=== PATIENT | male | born 1930 | race Two or more races ===

== ENCOUNTER 2016-11-22 13:25 | Outpatient (CLI) | payer MEDICARE, OTHER ==
[~2016-11-22 13:25] MED LIST: ALIGN4 M1 PO; AMLODIPINE BESYL5 MG ORAL; ASPIRIN-LOW81 MG ORAL; BYSTOLIC 10MG10 MG ORAL; BYSTOLIC2.5 MG ORAL; CRESTOR10 M1 ORAL; DEXILANT60 MG ORAL; LEXAPRO10 MG ORAL; LINZESS145 MCG PO; LISINOPRIL10 MG ORAL; METAMUCIL425 GM PO; METFORMIN HCL500 M1 ORAL; PLAVIX75 MG ORAL; REPATHA SY140 MG/1 M SQ
[2016-11-22] MEDS ORDERED: PROLIA60 MG/1 ML SUBQ (13:53)
--- NOTE | 2016-11-22 14:25 | GI Progress Note ---
Assessment/Plan Problems: (1) Weight loss ICD Codes: R63.4 - Abnormal weight loss SNOMED: 47058489, 231964037 (2) DM (diabetes mellitus) ICD Codes: E11.9 - DM (diabetes mellitus) SNOMED: 99852739 (3) Chronic constipation ICD Codes: K59.00 - Chronic constipation SNOMED: 596196993 (4) Hemorrhoids ICD Codes: K64.9 - Hemorrhoids SNOMED: 30743349 Status: stable Status Narrative Seen with Dr. Phan. Assessment/Plan trial Linzess recommend Align daily RTC x 3 weeks for possible EGD/colonoscopy will consider CT for weight loss Subjective Subjective RLQ abdominal pain constipation decrease in appetite. Objective T 97.4 BP 130/71 P 64 WT 151 General Appearance: no apparent distress, alert Cardiovascular: normal rate Respiratory/Chest: normal breath sounds, no respiratory distress Abdominal Exam: normal bowel sounds, non tender, soft Extremities: normal range of motion Zahra Dalton N.P. November 22, 2016 14:25
[2016-11-22 15:34] VITALS: BP 130/71
== END 2016-11-22 16:50 | disposition home or self-care (01) ==
LOC: PAN 13:25
DX: R63.4 Abnormal weight loss (principal); E11.9 Type 2 diabetes mellitus without complications; K59.00 Constipation, unspecified; K64.9 Unspecified hemorrhoids
CPT/HCPCS: 99211

== ENCOUNTER 2017-06-06 13:27 | Outpatient (CLI) | payer MEDICARE, OTHER ==
[~2017-06-06 13:27] MED LIST changes: +PROLIA60 MG/1 ML SUBQ
[2017-06-06] MEDS ORDERED: RIVASTIGMINE1 EAC1 TD (14:38)
--- NOTE | 2017-06-06 14:38 | GI Progress Note ---
Assessment/Plan Problems: (1) Chronic constipation ICD Codes: K59.00 - Chronic constipation SNOMED: 578081716 (2) Hemorrhoids ICD Codes: K64.9 - Hemorrhoids SNOMED: 96133190 (3) Weight loss ICD Codes: R63.4 - Abnormal weight loss SNOMED: 58632875, 760317446 (4) DM (diabetes mellitus) ICD Codes: E11.9 - DM (diabetes mellitus) SNOMED: 95466411 Status: stable Status Narrative Seen with Dr. Phan. Assessment/Plan Align cont Linzess recommend colonoscopy or CT, patient refuses at this time RTC x 3 months Subjective Subjective abdominal pain bloody stools has not been taking linzess or align Objective T 98.1 BP 136/65 P 56 97 RA WT 147 lbs (5 lbs lost in 6 months) General Appearance: WD/WN, no apparent distress, alert Cardiovascular: normal rate Respiratory/Chest: normal breath sounds, no respiratory distress Abdominal Exam: normal bowel sounds, non tender, soft Extremities: normal range of motion, non-tender Zahra Dalton NLowell Jun 06, 2017 14:37
[2017-06-06 15:09] VITALS: BP 136/65
== END 2017-06-06 14:15 | disposition home or self-care (01) ==
LOC: PAN 13:27
DX: K59.00 Constipation, unspecified (principal); K64.9 Unspecified hemorrhoids; R63.4 Abnormal weight loss; E11.9 Type 2 diabetes mellitus without complications; K92.1 Melena
CPT/HCPCS: 99211

== ENCOUNTER 2018-02-11 10:59 | Outpatient (CLI) | payer MEDICARE, OTHER ==
[~2018-02-11] VITALS: Ht 165.1 cm; Wt 65.3 kg
[~2018-02-11 10:59] MED LIST changes: +RIVASTIGMINE1 EAC1 TD
[2018-02-11] MEDS ORDERED: LINZESS145 MCG PO (12:27)
[2018-02-11] MEDS ORDERED: NAMENDA5 MG ORAL (12:27)
[2018-02-11 13:11] VITALS: BP 106/56
--- NOTE | 2018-02-11 16:45 | GI Progress Note ---
Assessment/Plan Problems: (1) DM (diabetes mellitus) ICD Codes: E11.9 - DM (diabetes mellitus) SNOMED: 30468194 (2) Chronic constipation ICD Codes: K59.00 - Chronic constipation SNOMED: 956290726 (3) Hemorrhoids ICD Codes: K64.9 - Hemorrhoids SNOMED: 67071139 (4) Colon polyps ICD Codes: K63.5 - Colon polyps SNOMED: 16208483 (5) H. pylori infection ICD Codes: B96.81 - H. pylori infection SNOMED: 018230759 (6) Diverticulosis ICD Codes: K57.90 - Diverticulosis SNOMED: 591975237 Status: stable Status Narrative Seen with Dr. Phan. Assessment/Plan last colonoscopy 2011, noted with cecum inflammation SBCE done CTAP ordered at [facility] RTC after imaging study The patient was seen and examined at bedside and all new and available data was reviewed in the patients chart. I agree with the above findings, impression and plan. (Patient seen earlier today. Signature stamp does not reflect patient encounter time.). - Jaydon Phan MD Subjective Subjective constipation >> possible chronic with occasional linzess Objective Last 24 Hour Vital Signs Date Time Temp Pulse Resp B/P (MAP) Pulse Ox O2 Delivery O2 Flow Rate FiO2 02/11/18 13:11 98.2 57 16 106/56 96 98.2 General Appearance: WD/WN, no apparent distress, alert Cardiovascular: normal rate Respiratory/Chest: normal breath sounds, no respiratory distress Abdominal Exam: normal bowel sounds, non tender, soft Extremities: normal range of motion, non-tender Trina Dalton [employer] Feb 11, 2018 16:45
== END 2018-02-11 11:33 | disposition home or self-care (01) ==
LOC: PAN 10:59
DX: E11.9 Type 2 diabetes mellitus without complications (principal); K59.00 Constipation, unspecified; K64.9 Unspecified hemorrhoids; K63.5 Polyp of colon; B96.81 Helicobacter pylori [H. pylori] as the cause of diseases classified elsewhere; K57.90 Diverticulosis of intestine, part unspecified, without perforation or abscess without bleeding
CPT/HCPCS: 99213

== ENCOUNTER 2019-01-29 14:04 | Outpatient (CLI) | payer MEDICARE, OTHER ==
[~2019-01-29 14:04] MED LIST changes: +NAMENDA5 MG ORAL
[2019-01-29 14:11] VITALS: BP 130/58
[2019-01-29] MEDS ORDERED: TRULANCE PO (16:38)
[2019-01-29] MEDS ORDERED: RIVASTIGMINE1 EACH TD (16:38)
--- NOTE | 2019-02-02 15:10 | General Progress Note ---
Assessment/Plan Problem List: (1) Colon polyps ICD Codes: K63.5 - Colon polyps SNOMED: 26665833 (2) DM (diabetes mellitus) ICD Codes: E11.9 - DM (diabetes mellitus) SNOMED: 44239657 (3) Chronic constipation ICD Codes: K59.00 - Chronic constipation SNOMED: 195715428 (4) H. pylori infection ICD Codes: B96.81 - H. pylori infection SNOMED: 965485902 (5) Hemorrhoids ICD Codes: K64.9 - Hemorrhoids SNOMED: 74147560 (6) Diverticulosis ICD Codes: K57.90 - Diverticulosis SNOMED: 495235680 (7) Weight loss ICD Codes: R63.4 - Abnormal weight loss SNOMED: 14188341, 672461414 (8) HTN (hypertension) ICD Codes: I10 - HTN (hypertension) SNOMED: 21243385 Assessment/Plan: colo guard linzess omeprazole creon marinol RTC one month Subjective ROS Limited/Unobtainable: Yes Allergies: Coded Allergies: No Known Allergies (Unverified , 02/11/18) Objective General Appearance: alert EENT: normal ENT inspection Neck: supple Cardiovascular: normal rate Respiratory/Chest: lungs clear Abdomen: normal bowel sounds, non tender, soft Extremities: non-tender Jaydon Phan MD Feb 02, 2019 15:10
== END 2019-01-29 16:01 | disposition home or self-care (01) ==
LOC: PAN 14:04
DX: K63.5 Polyp of colon (principal); E11.9 Type 2 diabetes mellitus without complications; K59.00 Constipation, unspecified; B96.81 Helicobacter pylori [H. pylori] as the cause of diseases classified elsewhere; K64.9 Unspecified hemorrhoids; K57.90 Diverticulosis of intestine, part unspecified, without perforation or abscess without bleeding; R63.4 Abnormal weight loss; I10 Essential (primary) hypertension
CPT/HCPCS: 99213

== ENCOUNTER 2019-02-19 12:10 | Outpatient (CLI) | payer MEDICARE, OTHER ==
[~2019-02-19 12:10] MED LIST changes: +RIVASTIGMINE1 EACH TD; +TRULANCE PO
--- NOTE | 2019-02-19 14:34 | General Progress Note ---
Assessment/Plan Problem List: (1) Colon polyps ICD Codes: K63.5 - Colon polyps SNOMED: 76431461 (2) DM (diabetes mellitus) ICD Codes: E11.9 - DM (diabetes mellitus) SNOMED: 56876170 (3) Chronic constipation ICD Codes: K59.00 - Chronic constipation SNOMED: 167801549 (4) HTN (hypertension) ICD Codes: I10 - HTN (hypertension) SNOMED: 54436013 (5) Hemorrhoids ICD Codes: K64.9 - Hemorrhoids SNOMED: 63550234 (6) Weight loss ICD Codes: R63.4 - Abnormal weight loss SNOMED: 60383527, 329322457 (7) Diverticulosis ICD Codes: K57.90 - Diverticulosis SNOMED: 315698742 (8) Cognitive decline ICD Codes: F09 - Cognitive decline SNOMED: 445465761 (9) H. pylori infection ICD Codes: B96.81 - H. pylori infection SNOMED: 714853141 Assessment/Plan: creon omeprazole linzess RTC prn Subjective ROS Limited/Unobtainable: Yes Allergies: Coded Allergies: No Known Allergies (Unverified , 02/11/18) Objective General Appearance: alert EENT: normal ENT inspection Neck: supple Cardiovascular: normal rate Respiratory/Chest: lungs clear Abdomen: normal bowel sounds, non tender, soft Extremities: non-tender Jaydon Phan MD Feb 19, 2019 14:34
== END 2019-02-19 14:10 | disposition home or self-care (01) ==
LOC: PAN 12:10
DX: K63.5 Polyp of colon (principal); E11.9 Type 2 diabetes mellitus without complications; K59.00 Constipation, unspecified; I10 Essential (primary) hypertension; K64.9 Unspecified hemorrhoids; K63.4 Enteroptosis; K57.90 Diverticulosis of intestine, part unspecified, without perforation or abscess without bleeding; F09 Unspecified mental disorder due to known physiological condition; B96.81 Helicobacter pylori [H. pylori] as the cause of diseases classified elsewhere
CPT/HCPCS: 99212